=== PATIENT | female | born 1960 | race Two or more races ===

== ENCOUNTER 2025-07-30 12:22 | Emergency (ER) | payer OTHER ==
[~2025-07-30] VITALS: Ht 180.3 cm; Wt 86.3 kg
[2025-07-30 13:06] LABS: Hematocrit 44.2 % (36.0-46.0); Hemoglobin 15.1 g/dL (12.2-16.2); Mean Corpuscular Hemoglobin 30.6 pg (28.0-32.0); Mean Corpuscular Volume 89.4 fL (80.0-100.0); Nucleated Red Blood Cells % 0.0 %
[2025-07-30 13:13] LABS: Chloride 104 mmol/L (98-107); Potassium 4.2 mmol/L (3.5-5.1); Sodium 141 mmol/L (136-145)
[2025-07-30 13:14] LABS: Anion Gap 10 (5-15); Calcium 9.4 mg/dL (8.7-10.4); Carbon Dioxide 27 mmol/L (20-31)
[2025-07-30 13:19] LABS: BUN/Creatinine Ratio 7.8 (10.0-20.0); Glucose 91 mg/dL (74-106)
[2025-07-30 13:20] LABS: Blood Urea Nitrogen 8 mg/dL (9-23)
--- NOTE | 2025-07-30 13:25 | ED.PDOC ---
History of Present Illness HPI Comments This is a 64-year-old female who comes in with chief complaint of left calf pain as well as left buttocks pain and left arm pain. The patient denies any chest pain but is having some nausea as well as headache. The patient states that she was at home working when this happened. It started at approximately 9:00 a.m. this morning. She tried taking some Advil without significant relief. She states that she has never had this before. There has been no trauma. 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 History: No Pertinent COMPUTER NETWORK AND SYSTEMS ENGINEER History Family History Family History: Family hx of Cancer Social History Smoker: Other (VAPE) Alcohol: Denies ETOH Use Drugs: Denies Drug Use Lives In: Home Constitutional: denies: chills, diaphoresis, fatigue, fever, malaise, sweats, weakness, others EENTM: denies: blurred vision, double vision, ear bleeding, ear discharge, ear drainage, ear pain, ear ringing, eye pain, eye redness, hearing loss, mouth pain, mouth swelling, nasal discharge, nose bleeding, nose congestion, nose pain, photophobia, tearing, throat pain, throat swelling, voice changes, others Respiratory: denies: cough, hemoptysis, orthopnea, SOB at rest, shortness of breath, SOB with excertion, stridor, wheezing, others Cardiovascular: denies: chest pain, dizzy spells, diaphoresis, Dyspnea on exertion, edema, irregular heart beat, left arm pain, lightheadedness, palpitations, PND, syncope, others Gastrointestinal: reports: nausea; denies: abdomen distended, abdominal pain, blood streaked bowels, constipated, diarrhea, dysphagia, difficulty swallowing, hematemesis, melena, poor appetite, poor fluid intake, rectal bleeding, rectal pain, vomiting, others Genitourinary: denies: abnormal vagina bleeding, burning, dyspareunia, dysuria, flank pain, frequency, hematuria, incontinence, pain, , vagina discharge, urgency, others Neurological: denies: dizziness, fainting, headache, left sided numbness, left sided weakness, numbness, paresthesia, pre-existing deficit, right sided numbness, right sided weakness, seizure, speech problems, tingling, tremors, weakness, others Musculoskeletal: reports: others (Left calf pain, left arm pain and left buttocks pain); denies: back pain, gout, joint pain, joint swelling, muscle pain, muscle stiffness, neck pain Integumetry: denies: bruises, change in color, change in hair/nails, dryness, laceration, lesions, lumps, rash, wounds, others Allergic/Immunocompromised: denies: Difficulty Healing, Frequent Infections, Hives, Itching, others Hematologic/Lymphatic: denies: anemia, blood clots, easy bleeding, easy bruising, swollen glands, others Endocrine: denies: excessive hunger, excessive sweating, excessive thirst, excessive urination, flushing, intolerance to cold, intolerance to heat, unexplained weight gain, unexplained weight loss, others Psychiatric: denies: anxiety, bipolar disorder, depression, hopeless, panic disorder, schizophrenia, sleepless, suicidal, others Physical Exam General Appearance: Moderate Distress HEENT: Normal ENT Inspection, Pharynx Normal, TMs Normal Neck: Full Range of Motion, Non-Tender, Normal, Normal Inspection Respiratory: Chest Non-Tender, Lungs Clear, No Accessory Muscle Use, No R espiratory Distress, Normal Breath Sounds Cardiovascular: No Edema, No JVD, No Murmur, No Gallop, Normal Peripheral Pulses, Regular Rate/Rhythm Breast Exam: Deferred Gastrointestinal: No Organomegaly, Non Tender, No Pulsatile Mass, Normal Bowel Sounds, Soft Genitalia: Deferred Pelvic: Deferred Rectal: Deferred Extremities: No calf tenderness, Normal capillary refill, Normal inspection, Normal range of motion, Non-tender, No pedal edema Musculoskeletal : Apperance: Normal Neurologic: Alert, blood bank technician II-XII nml as Tested, No Motor Deficits, Normal Affect, Normal Mood, No Sensory Deficits Cerebellar Function: Normal Reflexes: Normal Skin: Dry, Normal Color, Warm Lymphatic: No Adenopathy Was a procedure done? Was a procedure done?: No EKG EKG : Pulse Rate (adult): 69 [place]: Normal Cardiac Rhythm: NSR Block: None ST: Nonsp Differential Dx Considerations may include: CVA, [place], electrolyte imbalance, generalized weakness X-Ray, Labs, Meds, VS Vital Signs Date Time Temp Pulse Resp B/P (MAP) Pulse Ox O2 Delivery O2 Flow Rate FiO2 07/30/25 14:27 74 07/30/25 14:26 88 16 96 Room Air* 0 21 07/30/25 14:26 98.0 88 16 141/83 (102) 96 98.0 07/30/25 13:26 69 07/30/25 12:47 69 07/30/25 12:28 97.2 70 18 108/69 99 97.2 Lab Test 07/30/25 13:55 07/30/25 12:54 Range/Units Troponin I High Sensitivity 3 L < 3 L </=34 ng/L White Blood Count 7.0 4.4-10.8 10^3/uL Red Blood Count 4.94 4.0-5.20 10^6/uL Hemoglobin 15.1 12.2-16.2 g/dL Hematocrit 44.2 36.0-46.0 % Mean Corpuscular Volume 89.4 80.0-100.0 fL Mean Corpuscular Hemoglobin 30.6 28.0-32.0 pg Mean Corpuscular Hemoglobin Concent 34.2 32.0-36.0 g/dL Red Cell Distribution Width 14.1 11.8-14.3 % Platelet Count 416 140-450 10^3/uL Mean Platelet Volume 7.0 6.9-10.8 fL Neutrophils (%) (Auto) 69.9 37.0-80.0 % Lymphocytes (%) (Auto) 19.9 10.0-50.0 % Monocytes (%) (Auto) 5.8 0.0-12.0 % Eosinophils (%) (Auto) 3.2 0.0-7.0 % Basophils (%) (Auto) 1.2 0.0-2.0 % Neutrophils # (Auto) 4.9 1.6-8.6 10 ^3/uL Lymphocytes # (Auto) 1.4 0.4-5.4 10 ^3/uL Monocytes # (Auto) 0.4 0-1.3 10 ^3/uL Eosinophils # (Auto) 0.2 0-0.8 10 ^3/uL Basophils # (Auto) 0.1 0-0.2 10 ^3/uL Nucleated Red Blood Cells 0.0 % Sodium Level 141 136-145 mmol/L Potassium Level 4.2 3.5-5.1 mmol/L Chloride Level 104 98-107 mmol/L Carbon Dioxide Level 27 20-31 mmol/L Anion Gap 10 5-15 Blood Urea Nitrogen 8 L 9-23 mg/dL Creatinine 1.03 H 0.550-1.02 mg/dL Glomerular Filtration Rate Calc 61 >90 mL/min BUN/Creatinine Ratio 7.8 L 10.0-20.0 Serum Glucose 91 74-106 mg/dL Calcium Level 9.4 8.7-10.4 mg/dL Current Medications Medications (Trade) Dose Ordered Sig/Percy Route Start Time Stop Time Status Last Admin Ondansetron HCl (Zofran) 4 mg ONCE ONCE IV 07/30/25 14:45 07/30/25 14:46 DC 07/30/25 14:56 IV Hep-Lock was established The CBC and chemistry panel are within normal limits The troponin level is within normal limits x2 The patient was given Zofran 4 mg IV push for the nausea The patient's chemistry panel shows a creatinine of 1.03 but otherwise within normal limits. The CBC is within normal limits. The CAT scan of the head was done and shows: IMPRESSION: 1.3 cm hyperdense CD at the right thalamus. Given location, favor bleed. MRI recommended to evaluate for other possibilities such as a cavernoma. We did discuss the findings with the radiologist. At this point we are concerned about an intracranial hemorrhage so we did contact [facility]. [facility] did give us an authorization number of [id number] We then contacted [facility] and we are transferring the patient to their facility at this time We got an accepting doctor of Dr. Mari. The patient was started on Keppra 1000 mg IV piggyback The patient was also given Zofran for nausea 4 mg IV push We have discussed the findings with the patient and she is in agreement with the management The patient is now being transferred Images Reviewed?: Images reviewed and evaluated by me Time of 1ST Reevaluation: 13:25 Reevaluation 1ST: Unchanged Patient Education/Counseling: Diagnosis, Treatment, Prognosis Family Education/Counseling: No Family Present SEPSIS Sepsis Screen Date sepsis recognized/suspect: Jul 30, 2025 Time Sepsis recognized/suspect: 1228 Recent Procedure: No On Antibiotic Therapy: No Respiratory Rate >20: No Heart Rate >90: No Temp<36 C (96.8 F) or >38.3 C: No SBP <90 or MAP <65 mmHG: No New Acute Mental Status Change: No Is the patient on CPAP, BIPAP,: No Physician Orders Chest Portable (07/30/25 12:47) Urinalysis (07/30/25 12:47) Heplock Iv (07/30/25 12:47) Forensic Analyst (07/30/25 12:47) Blood Pressure (07/30/25 12:47) Pulse Oximetry (07/30/25 12:47) Electrocardigram (07/30/25 12:47) Head Without Contrast (07/30/25 12:47) Troponin-I Hs (07/30/25 15:47) Electrocardigram (07/30/25 13:47) Electrocardigram (07/30/25 15:47) Imaging Transfer Request (07/30/25 14:23) Vital Signs Date Time Temp Pulse Resp B/P (MAP) Pulse Ox O2 Delivery O2 Flow Rate FiO2 07/30/25 14:27 74 07/30/25 14:26 88 16 96 Room Air* 0 21 07/30/25 14:26 98.0 88 16 141/83 (102) 96 98.0 07/30/25 13:26 69 07/30/25 12:47 69 07/30/25 12:28 97.2 70 18 108/69 99 97.2 Laboratory Tests Test 07/30/25 12:54 White Blood Count 7.0 10^3/uL (4.4-10.8) Medications Medications Dose Ordered Sig/Percy Route Start Time Stop Time Status Last Admin Dose Admin Ondansetron HCl 4 mg ONCE ONCE IV 07/30/25 14:45 07/30/25 14:46 DC 07/30/25 14:56 Departure 1 Departure Time of Disposition: 15:11 Impression: Primary Impression: Thalamic hemorrhage Disposition: 51 HOSPICE/MEDICAL FACILITY Condition: Fair Critical Care Note Critical Care Time?: No Stability Stability form required: Yes Stable for transfer: Intended for transfer, To designated facility Heart Score Heart Score: Heart Score Response (Comments) Value History N/A 0 EKG N/A 0 Age N/A 0 Risk Factors N/A 0 Troponin N/A 0 Total 0 REHAN LU MD Jul 30, 2025 13:25
--- NOTE | 2025-07-30 13:36 | DVH ---
CHEST RADIOGRAPH INDICATION: pain TECHNIQUE: Single frontal view of the chest was obtained COMPARISON: None FINDINGS: Lines and Tubes: None Lungs: Bibasilar subsegmental atelectasis. Pleura: No effusion. No pneumothorax. Cardiomediastinal contours: Unremarkable Bones: Unremarkable IMPRESSION: Bibasilar subsegmental atelectasis.
--- NOTE | 2025-07-30 13:46 | DVH ---
CLINICAL HISTORY: MAS left sided pain TECHNIQUE: Helical scanning was performed of the head from the skull base to the vertex. Multiplanar reconstructions were performed. This exam was performed according to our departmental dose optimization program. Up-to-date CT equipment and radiation dose reduction techniques are utilized as appropriate. CTDI 55 DLP 968 COMPARISON: None FINDINGS: There is no evidence for acute ischemic changes, mass, mass effect, or extra- axial fluid collection. There is no hydrocephalus or midline shift. There is no effacement of the cerebral sulci and basal subarachnoid cisterns. The guerrero-white matter differentiation is well maintained. There is a 1.4 cm hyperdensity at the right thalamus. The imaged paranasal sinuses are clear. IMPRESSION: 1.3 cm hyperdense CD at the right thalamus. Given location, favor bleed. MRI recommended to evaluate for other possibilities such as a cavernoma. FINDINGS AND INTERPRETATION DISCUSSED WITH DR LU AT DATE AND TIME 07/30/2025 01:41 PM
[2025-07-30] MEDS: HYDROcodone-ACET 5/325MG TAB PO ONE (14:15)
[2025-07-30 14:26] VITALS: PULSE 88; RESP 16; O2SAT 96
[2025-07-30] MEDS: ONDANSETRON HCL 4 MG/2 ML VIAL IV ONE (14:56)
[2025-07-30] MEDS: levETIRAcetam 1000 mg/100ml 100 ML IV ONE (15:14)
[2025-07-30 15:19] VITALS: BP 138/86; PULSE 84; RESP 17; TEMP 97.9; O2SAT 95
--- NOTE | 2025-08-02 10:10 | ECG ---
[facility] Test Date: 2025-07-30 Test Time: 12:47:19 Pat Name: LAURIE CORCORAN Department: [facility] ED Patient ID: [facility]-[id number] Room: Gender: F Crm Functional Analyst: ALTA : 1960 Requested By: REHAN LU Order Number: [id number] Reading MD: Nasir Gustafson Measurements Intervals [place] Rate: 69 P: 51 OR: 160 QRS: 62 QRSD: 84 T: 58 QT: 381 QTc: 408 Interpretive Statements Sinus rhythm Anteroseptal infarct, age indeterminate Electronically Signed On 08-02-2025 15:22:54 PST by Nasir Gustafson Please click the below link to view image of tracing.
== END 2025-07-30 14:10 | disposition short-term general hospital (02) ==
LOC: EDBD 12:22 → ER 12:22
DX: I61.8 Other nontraumatic intracerebral hemorrhage (principal); F17.290 Nicotine dependence, other tobacco product, uncomplicated; Z90.49 Acquired absence of other specified parts of digestive tract; Z79.899 Other long term (current) drug therapy
CPT/HCPCS: 36415; 70450; 71045; 80048; 84484; 85025; 93005; 96374; 96375; 99285; J1953; J2405